=== PATIENT | female | born 1950 | race Caucasian/White ===

== ENCOUNTER → 2020-03-03 10:40 | Outpatient (CLI) | payer MEDICARE, OTHER, SELFPAY ==
--- NOTE | 2020-03-04 15:29 | DI.NM.S_ITS ---
DATE OF SERVICE: 03/03/2020 PROCEDURE PERFORMED: Exercise treadmill stress and rest myocardial perfusion imaging with gating to assess ejection fraction and regional wall motion. ORDERING PROVIDER: Dr. Murphy. INDICATIONS: The patient is a 69-year-old female with atypical chest discomfort. EXERCISE TREADMILL TESTING: The patient walked for 4 minutes 35 seconds on a standard Alexis protocol suggesting moderately impaired exercise capacity with an NEVILLE of +25%. She had an accelerated heart rate response to exercise with a resting heart rate of 105 that increased to 155 BPM after 3 minutes of exercise and reached a maximum of 168 BPM (110% of her predicted maximum). She had a normal blood pressure response. She had no chest discomfort. Her resting ECG shows sinus rhythm with normal ST segments. With stress, there were no significant ST-segment shifts or arrhythmias. At 3 minutes 30 seconds of exercise at a heart rate of 160 BPM, 26.8 millicuries of technetium-99m Myoview was injected and the patient was imaged 15 minutes later using a gated SPECT acquisition protocol. The following day, she returned and was injected with 25.6 millicuries of technetium-99m Myoview and was imaged 30 minutes, again using a gated SPECT acquisition protocol. FINDINGS: 1. Raw data: There was good myocardial tracer uptake. Lung/heart ratio was normal at 0.20. TID ratio was normal at 0.82. 2. Quantitated gated SPECT: Post-stress ejection fraction is estimated at 86% without any focal wall motion abnormality and likely an overestimate because of relatively small left ventricular volumes. The resting ejection fraction is estimated at 77% with a resting end-diastolic volume of 71 mL. 3. Myocardial perfusion imaging: Post-stress supine images shows a normal myocardial perfusion pattern without any perfusion defects, supported by normal perfusion imaging in the prone position. The resting images show a similar perfusion pattern without any areas of improvement. IMPRESSION: 1. Normal myocardial perfusion study. 2. No evidence of myocardial ischemia or previous myocardial infarction. 3. High normal left ventricular systolic function without focal wall motion abnormality and relatively small left ventricular volumes. 4. Moderately impaired exercise capacity with an accelerated heart rate response to exercise but no angina or ECG evidence of ischemia. Skye Alvarez - EMI/miguel/maria m doc#: [id number]/job#: [id number] dd: 03/04/2020 14:14:00 dt: 03/04/2020 15:17:00 DICTATING MD/COPIES TO: Naif Givens MD; Fred Murphy M.D. COPIES MNE: [email or web address];
== END ==
PROVIDERS: PCP Family Medicine; Referring Provider Family Medicine; Visit Provider Family Medicine
DX: R07.89 Other chest pain (principal)
CPT/HCPCS: 78452; 93017; A9502

== ENCOUNTER → 2020-07-06 12:35 | Outpatient (CLI) | payer MEDICARE, OTHER, SELFPAY ==
[2020-07-06 21:01] LABS: COVID19 - ORCAS (NP or Nasal) Negative (Negative)
== END ==
PROVIDERS: PCP Family Medicine; Visit Provider Family Medicine
DX: Z20.822 Contact with and (suspected) exposure to COVID-19 (principal)
CPT/HCPCS: U0003

== ENCOUNTER → 2023-06-20 09:47 | Outpatient (CLI) | payer MEDICARE, OTHER, SELFPAY ==
[2023-06-20 19:30] LABS: Hematocrit 39.6 % (36-46); Hemoglobin 13.4 g/dL (12.0-16.0); Mean Corpuscular Hemoglobin 29.8 PG (26-34); Mean Corpuscular Volume 87.7 fL (80-100); Platelet Count 252 X10^3/uL (150-400); Red Blood Cell Count 4.51 X10^6/uL (4.0-5.2); Red Cell Distribution Width 12.7 % (11.6-14.8); White Blood Cell Count 5.1 X10^3/uL (4.5-11.0)
[2023-06-20 19:53] LABS: Alanine Aminotransferase 15 IU/L (<35); Albumin 4.4 g/dL (3.5-5.0); Albumin Globulin Ratio 1.8 (1.0-2.8); Alkaline Phosphatase 88 U/L (38-126); Aspartate Aminotransferase 25 IU/L (14-36); BUN Creatinine Ratio 23.7 (6-22); Bilirubin Total 0.6 mg/dL (0.2-1.3); Blood Urea Nitrogen 14 mg/dL (7-17); Calcium 9.4 mg/dL (8.4-10.2); Carbon Dioxide 30 mmol/L (22-32); Chloride 106 mmol/L (98-107); Cholesterol 155 mg/dL (140-199); Estimated Glomerular Filt Rate > 60 mL/min (>60); Globulin 2.5 g/dL (1.7-4.1); Glucose 110 mg/dL (80-110); HDL Cholesterol 54 mg/dL (40-60); HEMOLYSIS < 15 (0-50); LDL Cholesterol Calculated 86 mg/dL (<100); Potassium 4.1 mmol/L (3.4-5.1); Sodium 140 mmol/L (137-145); Total Protein 6.9 g/dL (6.3-8.2); Triglycerides 73 mg/dL (35-150)
[2023-06-20 20:14] LABS: TSH w/ Reflex to FT4 1.27 uIU/mL (0.47-4.68)
== END ==
PROVIDERS: PCP Family Medicine; Visit Provider Registered Nurse
DX: E78.5 Hyperlipidemia, unspecified (principal); R00.2 Palpitations
CPT/HCPCS: 80053; 80061; 84443; 85027